=== PATIENT | male | born 1945 | race Caucasian/White ===

== ENCOUNTER 2017-11-19 15:12 | Outpatient (CLI) | payer MEDICARE ==
--- NOTE | 2017-11-19 15:48 | RAD ---
TWO VIEWS CHEST: Date: 11-19-17 Comparison: 04-25-17 History: Dyspnea. FINDINGS: There is atherosclerotic calcification of the aortic arch. There is complete opacification of the lef t hemithorax with left hemithorax volume loss, stable. Right lung is hyperinflated with mild increase d interstitial density. Right lung is grossly unremarkable otherwise. There is multilevel degenerativ e change within the thoracic spine. IMPRESSION: Stable appearance of the chest as detailed above. POS: FLORIAN
== END 2017-11-19 15:13 | disposition home or self-care (01) ==
LOC: RAD 15:12
PROVIDERS: ATTEND Thoracic Surgery (Cardiothoracic Vascular Surgery)
DX: C34.10 Malignant neoplasm of upper lobe, unspecified bronchus or lung (principal)
CPT/HCPCS: 71046

== ENCOUNTER 2017-11-22 09:39 | Outpatient (CLI) | payer MEDICARE ==
[2017-11-22 10:56] LABS: Calc. Creatinine Clearance 0 mL/min (70-130); Estimated GFR-MDRD Greater than 90
--- NOTE | 2017-11-22 12:32 | CT ---
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 COMPARISON: CT abdomen and pelvis 2013. FINDINGS: There is a large left subpleural effusion. There is mild emphysematous change in the right lung base . There is leftward mediastinal shift with volume loss. The spleen is unremarkable as well as the pancreas. No intrahepatic or extrahepatic biliary dilatati on. There are multifocal areas of cortical scarring both kidneys. There is a hypodensity inferior pole l eft kidney similar to the comparison examination. There is also interpolar hypodensity slightly smal ler than the comparison examination left kidney. No dilated loops of large or small bowel. No free intraperitoneal gas or fluid. BONES: There is extensive degenerative disease of the lumbar spine. Mild narrowing of the pubic symphysis. Low-grade degenerative disease medial compartments of both knees. MUSCLES: There is near-complete occlusion of the superior mesenteric artery distal to the ostia approximately 2 cm from a length of approximately a centimeter due to calcific plaque. Distal branches appear to b e patent. Low-grade narrowing of the proximal celiac artery. The inferior mesenteric artery is patent. The ostia of both renal arteries are patent. No aneurysmal dilatation of the aorta. RIGHT SIDE: There is extensive atherosclerotic plaque of the bilateral common iliac arteries. There is a focal 5 0% stenosis proximal right common iliac artery near the origin. Extensive atherosclerotic plaque in internal iliac artery. Multifocal less than 50% stenosis of the external iliac artery on the right. There is a focal complete occlusion of the right common femoral artery for a length of 2-3 mm series 3 image 144 as well as complete occlusion of the right femoral artery down to the level of the popli teal artery with reconstitution from collaterals for the deep femoral artery. Multifocal greater than 30% stenosis of the popliteal artery. The proximal and mid trifurcation are patent with flow extending to the foot. LEFT SIDE: There is complete occlusion of proximal left internal iliac artery for a length of 3 cm with some dis veronica reconstitution. The left external iliac artery has extensive atherosclerotic plaque. The left c ommon femoral artery is patent as well as the deep femoral and femoral arteries. The femoral artery is multifocal, greater than 50% areas of narrowing throughout its length. Popliteal artery also has multifocal areas of narrowing. The trifurcation is patent to the foot. IMPRESSION: 1. Focal occlusion right common femoral artery and right femoral artery with reconstitution from the deep femoral artery through the trifurcation which has flow. 2. Multifocal areas of greater than 50% narrowing due to soft and calcific plaque throughout the [place] ac arteries and left femoral artery and bilateral popliteal arteries. 3. Focal complete occlusion of proximal left internal iliac artery due to calcific plaque. 4. Renal hypodensities are similar to the comparison examination and suggests benignity. 5. Similar appearance to large left layering pleural effusion and volume loss. POS: FLORIAN
[2017-11-22] MEDS ORDERED: Iopamidol 370 76% 100 ML VIAL ONE (13:16)
== END 2017-11-22 09:40 | disposition home or self-care (01) ==
LOC: CT 09:39
PROVIDERS: ATTEND Thoracic Surgery (Cardiothoracic Vascular Surgery)
DX: I70.223 Atherosclerosis of native arteries of extremities with rest pain, bilateral legs (principal); I70.8 Atherosclerosis of other arteries; N28.89 Other specified disorders of kidney and ureter
CPT/HCPCS: 36415; 75635; 82565

== ENCOUNTER 2017-12-11 09:00 | Outpatient (CLI) | payer MEDICARE ==
[2017-12-11 12:53] LABS: Anion Gap 10 mmol/L (10-20); BUN (Urea Nitrogen) 10 mg/dL (8.4-25.7); Calc. Creatinine Clearance 0 mL/min (70-130); Calcium 9.9 mg/dL (7.8-10.44); Carbon Dioxide 31 mmol/L (23-31); Chloride 97 mmol/L (98-107); Estimated GFR-MDRD Greater than 90; Glucose 114 mg/dL (83-110); Potassium 3.7 mmol/L (3.5-5.1); Sodium 134 mmol/L (136-145)
--- NOTE | 2017-12-11 15:47 | EKG ---
Test Reason : Blood Pressure : / mmHG Vent. Rate : 087 BPM Atrial Rate : 087 BPM P-R Int : 178 ms QRS Dur : 084 ms QT Int : 344 ms P-R-T Axes : 087 065 090 degrees QTc Int : 413 ms Normal sinus rhythm Anteroseptal infarct (cited on or before 16-JUN-2015) Abnormal ECG Confirmed by ARTURO LYNN ([id number]) on 12/11/2017 3:47:12 PM Referred By: CINTHIA Confirmed By:ARTURO LYNN
[2017-12-11 18:21] LABS: Hemoglobin 12.2 g/dL (14.0-18.0); Mean Corpuscular HGB CONC 32.7 g/dL (32.0-36.0); Mean Corpuscular Hemoglobin 31.8 pg (27.0-31.0); Mean Corpuscular Volume 97.5 fl (80.0-94.0); Mean Platelet Volume 6.6 fL (7.4-10.4); Platelet Count 337 thou/uL (130-400); RBC Distribution Width 12.5 % (11.5-14.5); Red Blood Cell (RBC) Count 3.83 mill/uL (4.70-6.10); White Blood Cell (WBC) Count 7.6 thou/uL (4.8-10.8)
== END 2017-12-11 09:01 | disposition home or self-care (01) ==
LOC: LABBT 09:00
PROVIDERS: ATTEND Thoracic Surgery (Cardiothoracic Vascular Surgery)
DX: Z01.818 Encounter for other preprocedural examination (principal); I73.9 Peripheral vascular disease, unspecified
CPT/HCPCS: 80048; 85027; 86850; 86900; 86901; 93005; 93010

== ENCOUNTER 2017-12-11 11:15 | Inpatient (IN) | payer MEDICARE ==
[2017-12-12] MEDS ORDERED: Protamine Sulfate 50 MG/5 ML VIAL ONE (06:20)
[2017-12-12] MEDS ORDERED: Heparin 5,000 UNITS/ML VIAL ONE (06:20)
[2017-12-12] MEDS ORDERED: CEFAZOLIN/Water 2 GM/20 ML SYRINGE ONE (07:10)
[2017-12-12] MEDS ORDERED: Fentanyl 100 MCG/2 ML VIAL ONE ×3 (07:26→11:59)
[2017-12-12] MEDS ORDERED: Heparin 10,000 UNITS/1 ML VIAL ONE (09:59)
[2017-12-12] MEDS ORDERED: HYDROmorphone 0.5 MG/0.5 ML SYRINGE ONE ×2 (10:11→10:56)
[2017-12-12] MEDS ORDERED: Metoprolol Tartrate 5 MG/5 ML VIAL ONE ×2 (10:55→17:01)
[2017-12-12] MEDS ORDERED: hydrALAZINE 20 MG/ML VIAL ONE (11:02)
[2017-12-12] MEDS ORDERED: Meperidine HCl/PF 25 MG/ML VIAL ONE (11:07)
[2017-12-12] MEDS ORDERED: Dexamethasone 4 mg/ml Vial ONE (11:10)
[2017-12-12] MEDS ORDERED: Ondansetron HCl/PF 4 MG/2 ML Vial ONE ×2 (11:10→17:01)
[2017-12-12] MEDS ORDERED: HYDROmorphone 2 MG/ML VIAL SLOW IVP PRN (11:12)
[2017-12-12] MEDS ORDERED: Ondansetron HCl/PF 4 MG/2 ML Vial IVP PRN ×2 (11:12→12:47)
[2017-12-12] MEDS ORDERED: Promethazine HCl 25 MG/ML VIAL IM PRN (11:12)
[2017-12-12] MEDS ORDERED: Promethazine HCl 25 MG/ML VIAL SLOW IVP PRN (11:12)
--- NOTE | 2017-12-12 11:35 | OP ---
PREOPERATIVE DIAGNOSES: Peripheral arterial disease, bilateral rest pain right foot. PROCEDURE: Aortogram bilateral runoff with bilateral femoral arterial catheters stenting in the left common iliac with a 7 x 57 Express stent and stenting of the left external iliac artery with a 7 x 8 0 Innova self-expanding stent posted with a 7 mm balloon and right common femoral endarterectomy incl uding 2 profunda branches. SURGEON: Ruben Clay M.D. ANESTHESIA: General. ESTIMATED BLOOD LOSS: 150 mL. CONTRAST: 50.5 mL FLUOROSCOPY: 13.22 minutes. PROCEDURE IN DETAIL: After adequate anesthesia had been obtained, the patient was prepped and draped . Left common femoral artery was punctured by ultrasound guidance and under fluoroscopy, a Ganjison w kia was gently advanced into the aorta and a 5 Monegasque dilator and sheath were placed. Following this , an incision was made in the right groin, exposing the common femoral artery from just above the cir cumflex femoral vessels to the takeoff of the superficial femoral. The right common femoral artery w as then punctured with a needle and a 5 Monegasque dilator and catheter were placed. Retrograde angiogra phy was obtained on both sides with the right side demonstrating some moderate stenosis of less than 50%. On the left side, the common iliac artery was diffusely and subtotally occluded and there was a t least two discrete 75% stenosis in the external iliac artery. Following this, the Bentson guidewir e was exchanged for a long Wholey wire and then a 5 x 40 balloon was used to inflate the common and e xternal iliac artery sequentially. Following this, the 5 x 57 Express stent was deployed in the comm on iliac artery on the left about 1 cm proximal to the bifurcation of the aorta. Following this, the 7 x 80 Innova stent was deployed and posted with a 7 mm balloon, which was then used to dilate the c ommon iliac stent. Completion angiography showed satisfactory result. The common iliac artery could have been sized to a bigger stent; however, was concerned with its heavy calcification that we may f racture this vessel. Following this, attention was turned to the right groin where clamp was applied to the external iliac artery and both profunda branches, long arteriotomy performed. The vessel was occluded as anticipated with a plug extending into the orifice of the profunda branch. These were a ll cleaned and removed, following which a bovine patch was used to close the arteriotomy, irrigating. Following copious irrigation, the suture line was completed and the vessels back flushed and flow r estored. Protamine was given to reverse the heparin. A ProGlide was then used to deploy in the left groin; however, this did not obtain hemostasis and pressure was then held for 20 minutes and this co ntrolled bleeding from the left groin. The right groin was then thoroughly irrigated and closed in tariq conrad and the patient is to be taken to the recovery room in guarded condition.
[2017-12-12] MEDS ORDERED: Fentanyl 100 MCG/2 ML VIAL SLOW IVP PRN ×2 (12:47)
[2017-12-12] MEDS ORDERED: HYDROcodone/Acetaminophen 5/325 mg Tablet PO PRN (12:47)
[2017-12-12] MEDS ORDERED: Acetaminophen 325 MG TAB PO PRN (12:47)
[2017-12-12] MEDS ORDERED: hydrALAZINE 20 MG/ML VIAL SLOW IVP PRN (12:47)
[2017-12-12] MEDS ORDERED: Polyethylene Glycol 3350 17 GM Packet PO PRN (12:47)
[2017-12-12] MEDS ORDERED: Clopidogrel Bisulfate 75 MG TAB PO SCH (13:00)
[2017-12-12] MEDS: HYDROcodone/Acetaminophen 5/325 mg Tablet PO PRN (15:22)
[2017-12-12 15:55] VITALS: BMI 21.2
[2017-12-12] MEDS ORDERED: Lidocaine 1% PF 5 ML VIAL ONE (17:01)
[2017-12-12] MEDS ORDERED: Heparin 10,000 UNITS/ 10 ML VIAL ONE (17:01)
[2017-12-12] MEDS ORDERED: Propofol 200 MG/20 ML VIAL ONE (17:01)
[2017-12-12] MEDS ORDERED: Dexamethasone 20 MG/5 ML VIAL ONE (17:01)
[2017-12-12] MEDS: CEFAZOLIN/Water 2 GM/20 ML SYRINGE SLOW IVP SCH ×2 (17:48→21:01)
[2017-12-12] MEDS ORDERED: Sodium Chloride 0.9% 1,000 ML IV SCH (18:00)
[2017-12-13] MEDS: CEFAZOLIN/Water 2 GM/20 ML SYRINGE SLOW IVP SCH (06:35)
[2017-12-13] MEDS: Simvastatin 5 MG TAB PO SCH (09:05)
[2017-12-13] MEDS: Lisinopril 10 MG TAB PO SCH (09:06)
[2017-12-13] MEDS: Clopidogrel Bisulfate 75 MG TAB PO SCH (09:06)
[2017-12-13] MEDS: HYDROcodone/Acetaminophen 5/325 mg Tablet PO PRN (21:07)
[2017-12-13] MEDS: Metoprolol Tartrate 25 MG TAB PO SCH (21:08)
[2017-12-14 08:27] VITALS: BP 168/78; TEMP 97.8
[2017-12-14] MEDS: Metoprolol Tartrate 25 MG TAB PO SCH (08:51)
[2017-12-14] MEDS: Clopidogrel Bisulfate 75 MG TAB PO SCH (08:52)
[2017-12-14] MEDS: Lisinopril 10 MG TAB PO SCH (08:53)
[2017-12-14] MEDS: Simvastatin 5 MG TAB PO SCH (08:53)
== END 2017-12-14 10:40 | disposition home or self-care (01) | DRG 253 ==
LOC: SURG A 12-12 05:35 → CCU 12-12 14:21 → SURG A 12-13 17:47
PROVIDERS: ADMIT Thoracic Surgery (Cardiothoracic Vascular Surgery); ATTEND Thoracic Surgery (Cardiothoracic Vascular Surgery)
PROC: 04CK0Z6 (ICD-10-PCS; principal; 2017-12-12)
PROC: 04UK0KZ Supplement Right Femoral Artery with Nonautologous Tissue Substitute, Open Approach (ICD-10-PCS; 2017-12-12)
PROC: 047D3DZ Dilation of Left Common Iliac Artery with Intraluminal Device, Percutaneous Approach (ICD-10-PCS; 2017-12-12)
PROC: 047J3DZ Dilation of Left External Iliac Artery with Intraluminal Device, Percutaneous Approach (ICD-10-PCS; 2017-12-12)
PROC: B41DYZZ Fluoroscopy of Aorta and Bilateral Lower Extremity Arteries using Other Contrast (ICD-10-PCS; 2017-12-12)
DX: I70.223 Atherosclerosis of native arteries of extremities with rest pain, bilateral legs (principal); I70.92 Chronic total occlusion of artery of the extremities; E78.00 Pure hypercholesterolemia, unspecified; Z85.118 Personal history of other malignant neoplasm of bronchus and lung; Z85.46 Personal history of malignant neoplasm of prostate
CPT/HCPCS: 76001; 80048; 85027; 86850; 86900; 86901; 93005; 93010; C1725; C1760; C1876; G8978-GP-CL; G8979-GP-CJ; J0360; J1100; J1170; J1642; J1644; J2001; J2175; J2405; J2704; J2720; J3010; J7050

== ENCOUNTER 2018-04-10 12:36 | Outpatient (CLI) | payer MEDICARE ==
--- NOTE | 2018-04-10 13:01 | RAD ---
PA AND LATERAL VIEWS CHEST: HISTORY: Malignant neoplasm of upper lobe. FINDINGS: Comparison is made with the exam of 11/19/17. There is complete opacification of the left hemithorax with mediastinal shift to the left. The hyperexpanded right lung is clear. Atherosclerotic calcific ation of the aortic arch is redemonstrated. There are degenerative changes in the spine. IMPRESSION: Stable exam. POS: FLORIAN
== END 2018-04-10 12:37 | disposition home or self-care (01) ==
LOC: RAD 12:36
PROVIDERS: ATTEND Thoracic Surgery (Cardiothoracic Vascular Surgery)
DX: C34.10 Malignant neoplasm of upper lobe, unspecified bronchus or lung (principal)
CPT/HCPCS: 36415; 71046; 85027

== ENCOUNTER 2018-12-18 13:06 | Outpatient (CLI) | payer MEDICARE ==
--- NOTE | 2018-12-18 13:51 | RAD ---
CHEST 2 VIEWS: INDICATION: History of malignant neoplasm. COMPARISON: Prior exam dated 04/10/2018. FINDINGS: There is complete opacification of left hemithorax. There is hyperinflation of the right lung. The right lung remains clear. No acute osseous abnormality is evident. Vascular calcification is again seen involving the aortic arch. IMPRESSION: Stable complete opacification of the left hemithorax with hyperexpansion of the right. POS: FLORIAN
== END 2018-12-18 13:07 | disposition home or self-care (01) ==
LOC: RAD 13:06
PROVIDERS: ATTEND Thoracic Surgery (Cardiothoracic Vascular Surgery)
DX: C34.12 Malignant neoplasm of upper lobe, left bronchus or lung (principal); R91.8 Other nonspecific abnormal finding of lung field
CPT/HCPCS: 71046

== ENCOUNTER 2019-09-08 13:04 | Outpatient (CLI) | payer MEDICARE ==
--- NOTE | 2019-09-08 13:45 | RAD ---
RADIOGRAPH CHEST 2 VIEW: DATE: 09/08/2019 TIME: 1:13 PM HISTORY: 73-year-old male with malignant neoplasm of left lung or bronchus. COMPARISON: 12/18/2018 FINDINGS: Total opacification of left hemithoracic cavity. Midline shift of trachea, mediastinum, and heart far to the left. Right lung remains clear. No right pleural effusion or pneumothorax. No interval change overall. IMPRESSION: 1) status post total left pneumonectomy. 2) no interval change.
== END 2019-09-08 13:05 | disposition home or self-care (01) ==
LOC: RAD 13:04
PROVIDERS: ATTEND Thoracic Surgery (Cardiothoracic Vascular Surgery)
DX: C34.12 Malignant neoplasm of upper lobe, left bronchus or lung (principal); Z90.2 Acquired absence of lung [part of]
CPT/HCPCS: 71046

== ENCOUNTER 2020-03-08 14:15 | Outpatient (CLI) | payer MEDICARE ==
--- NOTE | 2020-03-08 14:41 | RAD ---
Chest 2 views HISTORY: Lung cancer. COMPARISON: 09/08/2019. FINDINGS: Obscuration of the left side of the leftward shift of mediastinum is again demonstrated. Ri ght lung remains hyperinflated. No lobar consolidation or pneumothorax. Calcification overlies the aorta. There are degenerative changes of the thoracic spine. IMPRESSION : Status post left pneumonectomy. Stable exam. Atherosclerosis.
== END 2020-03-08 14:16 | disposition home or self-care (01) ==
LOC: RAD 14:15
PROVIDERS: ATTEND Thoracic Surgery (Cardiothoracic Vascular Surgery)
DX: C34.10 Malignant neoplasm of upper lobe, unspecified bronchus or lung (principal); I70.0 Atherosclerosis of aorta; Z90.2 Acquired absence of lung [part of]
CPT/HCPCS: 71046

== ENCOUNTER 2020-09-04 13:16 | Emergency (ER) | payer MEDICARE ==
[2020-09-04 13:53] LABS: #Lymphocytes 1.3 thou/uL (1.20-3.40); #Monocytes 0.9 thou/uL (0.11-0.59); #Neutrophils 11.5 thou/uL (1.40-6.50); %Basophils 0.2 % (0.0-1.0); %Eosinophils 0.1 % (0.0-10.0); %Lymphocytes 9.5 % (21.0-51.0); %Monocytes 6.3 % (0.0-10.0); %Neutrophils 83.8 % (42.0-75.0); Hemoglobin 11.2 g/dL (14.0-18.0); Mean Corpuscular HGB CONC 34.2 g/dL (32.0-36.0); Mean Corpuscular Hemoglobin 31.1 pg (27.0-31.0); Mean Corpuscular Volume 91.1 fL (78.0-98.0); Mean Platelet Volume 5.8 fL (7.4-10.4); Platelet Count 382 thou/uL (130-400); Red Blood Cell (RBC) Count 3.61 mill/uL (4.70-6.10); White Blood Cell (WBC) Count 13.7 thou/uL (4.8-10.8)
[2020-09-04 14:07] LABS: Sodium 131 mmol/L (136-145)
[2020-09-04 14:08] LABS: ALT (SGPT) 8 U/L (8-55); AST (SGOT) 13 U/L (5-34); Albumin 3.9 g/dL (3.4-4.8); Alkaline Phosphatase 93 U/L (40-110); Anion Gap 16 mmol/L (10-20); BUN (Urea Nitrogen) 11 mg/dL (8.4-25.7); Bilirubin, Total 0.5 mg/dL (0.2-1.2); Calc. Creatinine Clearance 0 mL/min (70-130); Calcium 8.9 mg/dL (7.8-10.44); Carbon Dioxide 26 mmol/L (23-31); Chloride 94 mmol/L (98-107); Globulin 2.5 g/dL (2.4-3.5); Glucose 97 mg/dL (83-110); Lipase 11 U/L (8-78); Potassium 4.5 mmol/L (3.5-5.1); Protein, Total 6.4 g/dL (5.8-8.1)
--- NOTE | 2020-09-04 15:05 | CT ---
EXAM: CT ABDOMEN AND PELVIS HISTORY: Nausea. Vomiting. History of gastric bypass. COMPARISON: 11/22/2017, 06/16/2015 Procedure: Multiple contiguous axial images were obtained and a CT of the abdomen and pelvis with IV contrast. C oronal reformats were performed. FINDINGS: Lower Chest: Compensatory hyperinflation of the right lung. There is loculated fluid in the left pleu ral space with possible changes from pleurodesis. Diminished lung volumes in the left hemithorax with resultant leftward deviation of the heart. Vessels: Atherosclerosis of a nonaneurysmal aorta. Heart: Normal heart size Abdomen: Portal vein:Patent Gallbladder: Contracted, likely due to a nonfasting state Liver: within normal limits. Pancreas: within normal limits. Spleen: within normal limits. Adrenals: within normal limits. Kidneys: Symmetric enhancement. No obstructive uropathy. Peritoneum: No free air. There is small amount of fluid in the left and right paracolic gutter. There is a small amount of perihepatic mild stranding of the abdominal mesentery. Bowel: Gastric mucosa has a normal appearance. There are prominent contrast filled loops of proximal small bowel. Additionally, there are prominent fluid-filled loops of the distal small bowel. Ileocecal junction appears to be unremarkable. There appears be right hemicolectomy. Mesentery and Retroperitoneum: No enlarged mesenteric or retroperitoneal lymph nodes. Abdominal Wall: within normal limits. Pelvis: Reproductive Organs: Reproductive organs are unremarkable. Pelvis: No mass, lymphadenopathy or free air. There is free fluid in the pelvis. Bladder: within normal limits. Bones: within normal limits. IMPRESSION: 1. Prominent proximal and distal small bowel loops with evidence of free fluid in the pelvis. Correla te for possible developing ileus versus bowel obstruction. Consider general surgical consultation. 2. Chronic changes in the visualized lower chest. Transcribed Date/Time: 09/04/2020 3:14 PM
[2020-09-04 15:31] LABS: Bacteria/HPF None Seen HPF (None Seen); Bilirubin Negative (Negative); Blood, Urine 2+ (Negative); Clarity Clear (Clear); Glucose, Urine (Dipstick) Normal (Negative); Ketone, Urine Negative (Negative); Leukocyte Negative Leu/uL (Negative); Nitrite Negative (Negative); Protein, Urine (Dipstick) Negative (Neg-Trace); Specific Gravity, Urine 1.004 (1.002-1.036); Squamous Epithelial 0-3 HPF (0-3); Urobilinogen Normal mg/dL (Less than 2); WBC/HPF None Seen HPF (0-3)
[2020-09-04] MEDS ORDERED: Iopamidol-370 76% 500 ML 1 ML ONE (16:05)
[2020-09-04] MEDS ORDERED: Iopamidol 370 76% 50 ML VIAL FS ONE (16:05)
--- NOTE | 2020-09-10 17:08 | EKG ---
Test Reason : Blood Pressure : / mmHG Vent. Rate : 079 BPM Atrial Rate : 079 BPM P-R Int : 170 ms QRS Dur : 082 ms QT Int : 384 ms P-R-T Axes : 028 000 073 degrees QTc Int : 440 ms Normal sinus rhythm Septal infarct , age undetermined Abnormal ECG Confirmed by MAULIK BARRAZA DO ([id number]), supervising film or videotape editor CARRILLO HUGHES ([id number]) on 09/10/2020 5:07:44 PM Referred By: Confirmed By:MAULIK BARRAZA DO
== END 2020-09-04 14:48 | disposition home or self-care (01) ==
LOC: ERS 13:16
DX: R10.9 Unspecified abdominal pain (principal); R11.2 Nausea with vomiting, unspecified; E78.5 Hyperlipidemia, unspecified; E78.00 Pure hypercholesterolemia, unspecified; I10 Essential (primary) hypertension; F32.9 Major depressive disorder, single episode, unspecified; Z87.891 Personal history of nicotine dependence; Z79.82 Long term (current) use of aspirin; Z79.899 Other long term (current) drug therapy
CPT/HCPCS: 36415; 74177; 80053; 81003; 81015; 83690; 84484; 85025; 93005; 94760; Q9967

== ENCOUNTER 2021-02-01 11:54 | Outpatient (CLI) | payer MEDICARE ==
[2021-02-02 04:12] LABS: SARS-CoV-2 PCR by NAA Not Detected (NotDetected)
== END 2021-02-01 11:55 | disposition home or self-care (01) ==
LOC: LABBT 11:54
PROVIDERS: ATTEND Internal Medicine
DX: Z01.812 Encounter for preprocedural laboratory examination (principal); C32.9 Malignant neoplasm of larynx, unspecified; R13.10 Dysphagia, unspecified; Z20.822 Contact with and (suspected) exposure to COVID-19
CPT/HCPCS: U0003; U0005; 87635

== ENCOUNTER 2021-02-06 05:56 | Observation (INO) | payer MEDICARE ==
[2021-02-06] MEDS ORDERED: PROPOFOL 200 MG/20 ML VIAL ONE (08:23)
[2021-02-06] MEDS ORDERED: Fentanyl 100 MCG/2 ML VIAL ONE (09:32)
[2021-02-06] MEDS ORDERED: Bisacodyl 10 MG SUPP PR PRN (11:23)
[2021-02-06] MEDS ORDERED: Senokot S 8.6-50 MG TAB PO PRN (11:23)
[2021-02-06] MEDS ORDERED: Acetaminophen 325 MG TAB PO PRN (11:23)
[2021-02-06] MEDS ORDERED: Calcium Carbonate 500 MG ChewTAB PO PRN (11:23)
[2021-02-06] MEDS ORDERED: HYDROcodone/Acetaminophen 5/325 mg Tablet PO PRN (11:23)
[2021-02-06] MEDS ORDERED: Acetaminophen 650 MG Suppository PR PRN (11:23)
[2021-02-06] MEDS ORDERED: Ondansetron PF 4 MG/2 ML Vial IVP PRN (11:23)
[2021-02-06] MEDS ORDERED: Guaifenesin DM 100-10/5 ML UDCUP PO PRN (11:23)
[2021-02-06] MEDS ORDERED: Non-Formulary Item 1 EACH (Acetaminophen [Acetaminophen Oral Solution] 160 MG/5 ML Bottle PO PRN (11:25)
[2021-02-06] MEDS ORDERED: Polyethylene Glycol 3350 17 GM Packet PO PRN (11:25)
[2021-02-06] MEDS ORDERED: Sodium Chloride 0.9% 1,000 ML IV SCH (11:30)
[2021-02-06] MEDS ORDERED: Promethazine HCl 25 MG/ML VIAL SLOW IVP PRN (12:02)
[2021-02-06] MEDS ORDERED: Ondansetron HCl/PF 4 MG/2 ML Vial IVP PRN (12:02)
[2021-02-06] MEDS ORDERED: Promethazine HCl 25 MG/ML VIAL IM PRN (12:02)
[2021-02-06 12:39] LABS: #Lymphocytes 1.1 thou/uL (1.20-3.40); #Monocytes 0.6 thou/uL (0.11-0.59); #Neutrophils 10.1 thou/uL (1.40-6.50); %Basophils 0.2 % (0.0-1.0); %Lymphocytes 9.1 % (21.0-51.0); %Monocytes 4.9 % (0.0-10.0); %Neutrophils 85.7 % (42.0-75.0); Hemoglobin 11.8 g/dL (14.0-18.0); Mean Corpuscular HGB CONC 32.5 g/dL (32.0-36.0); Mean Corpuscular Hemoglobin 28.8 pg (27.0-31.0); Mean Corpuscular Volume 88.5 fL (78.0-98.0); Mean Platelet Volume 5.4 fL (7.4-10.4); Platelet Count 381 thou/uL (130-400); RBC Distribution Width 13.1 % (11.5-14.5); Red Blood Cell (RBC) Count 4.11 mill/uL (4.70-6.10); White Blood Cell (WBC) Count 11.8 thou/uL (4.8-10.8)
[2021-02-06 13:02] LABS: ALT (SGPT) 17 U/L (8-55); AST (SGOT) 27 U/L (5-34); Albumin 3.9 g/dL (3.4-4.8); Alkaline Phosphatase 100 U/L (40-110); Anion Gap 12 mmol/L (10-20); BUN (Urea Nitrogen) 12 mg/dL (8.4-25.7); Bilirubin, Total 0.2 mg/dL (0.2-1.2); Calc. Creatinine Clearance 68 mL/min (70-130); Calcium 9.2 mg/dL (7.8-10.44); Carbon Dioxide 28 mmol/L (23-31); Chloride 96 mmol/L (98-107); Glucose 113 mg/dL (83-110); Potassium 3.7 mmol/L (3.5-5.1); Protein, Total 6.9 g/dL (5.8-8.1); Sodium 132 mmol/L (136-145)
[2021-02-06 18:30] VITALS: BMI 21.2
[2021-02-06] MEDS: Metoprolol Tartrate 25 MG TAB PO SCH (20:46)
[2021-02-06] MEDS ORDERED: Mirtazapine 15 MG TAB PO SCH (21:00)
[2021-02-06] MEDS ORDERED: Docusate 100 MG CAP PO SCH (21:00)
[2021-02-06] MEDS: Docusate Sodium 100 MG/10 ML UDCUP PO SCH (22:16)
[2021-02-07] MEDS ORDERED: hydrALAZINE 20 MG/ML VIAL SLOW IVP PRN (05:29)
[2021-02-07] MEDS ORDERED: Lisinopril 10 MG TAB PO SCH ×2 (05:30→09:00)
[2021-02-07 07:20] LABS: #Basophils 0.1 thou/uL (0.0-0.2); #Monocytes 0.7 thou/uL (0.11-0.59); #Neutrophils 7.9 thou/uL (1.40-6.50); %Basophils 0.6 % (0.0-1.0); %Eosinophils 0.3 % (0.0-10.0); %Lymphocytes 10.4 % (21.0-51.0); %Monocytes 6.7 % (0.0-10.0); Hemoglobin 9.4 g/dL (14.0-18.0); Mean Corpuscular HGB CONC 33.5 g/dL (32.0-36.0); Mean Corpuscular Hemoglobin 29.7 pg (27.0-31.0); Mean Corpuscular Volume 88.8 fL (78.0-98.0); Mean Platelet Volume 5.6 fL (7.4-10.4); Platelet Count 322 thou/uL (130-400); RBC Distribution Width 13.1 % (11.5-14.5); Red Blood Cell (RBC) Count 3.17 mill/uL (4.70-6.10); White Blood Cell (WBC) Count 9.6 thou/uL (4.8-10.8)
[2021-02-07 07:37] LABS: Anion Gap 12 mmol/L (10-20); BUN (Urea Nitrogen) 14 mg/dL (8.4-25.7); Calc. Creatinine Clearance 88 mL/min (70-130); Carbon Dioxide 26 mmol/L (23-31); Chloride 98 mmol/L (98-107); Glucose 105 mg/dL (83-110); Potassium 3.5 mmol/L (3.5-5.1); Sodium 132 mmol/L (136-145)
[2021-02-07] MEDS ORDERED: Ferrous Sulfate 325 MG TAB PO SCH (09:00)
[2021-02-07] MEDS ORDERED: Pantoprazole 40 MG GRANULES PACKET PO SCH (09:00)
[2021-02-07] MEDS ORDERED: Aspirin Chewable 81 MG TAB PO SCH (09:00)
[2021-02-07] MEDS ORDERED: Enoxaparin Sodium 40 MG/0.4 ML SYRINGE SC SCH (09:00)
[2021-02-07] MEDS: Metoprolol Tartrate 25 MG TAB PO SCH (09:05)
[2021-02-07] MEDS: Docusate Sodium 100 MG/10 ML UDCUP PO SCH (09:06)
[2021-02-07 16:56] VITALS: BP 160/66; TEMP 98.2
[2021-02-08] MEDS ORDERED: Clopidogrel Bisulfate 75 MG TAB PO SCH (09:00)
== END 2021-02-07 17:27 | disposition home health service (06) ==
LOC: SDC 05:56 → T4-A 08:47 → EDSTATUS 12:15
PROVIDERS: ADMIT Internal Medicine; ATTEND Internal Medicine
PROC: 0DH63UZ Insertion of Feeding Device into Stomach, Percutaneous Approach (ICD-10-PCS; principal; 2021-02-06)
DX: C32.1 Malignant neoplasm of supraglottis (principal); C13.1 Malignant neoplasm of aryepiglottic fold, hypopharyngeal aspect; R13.10 Dysphagia, unspecified; K21.9 Gastro-esophageal reflux disease without esophagitis; I10 Essential (primary) hypertension; E78.00 Pure hypercholesterolemia, unspecified; I25.10 Atherosclerotic heart disease of native coronary artery without angina pectoris; D63.0 Anemia in neoplastic disease; G25.81 Restless legs syndrome; E78.5 Hyperlipidemia, unspecified; Z85.118 Personal history of other malignant neoplasm of bronchus and lung; Z85.46 Personal history of malignant neoplasm of prostate; Z87.891 Personal history of nicotine dependence; Z79.02 Long term (current) use of antithrombotics/antiplatelets; Z79.82 Long term (current) use of aspirin; Z79.899 Other long term (current) drug therapy; Z90.2 Acquired absence of lung [part of]; Z90.49 Acquired absence of other specified parts of digestive tract; Z95.5 Presence of coronary angioplasty implant and graft
CPT/HCPCS: 36415; 80048; 80053; 85025; 96372; G0378; J0690; J1650; J2704; J3010

== ENCOUNTER 2021-02-21 11:04 | Outpatient (CLI) | payer MEDICARE | END 2021-02-21 11:05 | disposition home or self-care (01) | LOC: PET 11:04 | PROVIDERS: ATTEND Radiology Radiation Oncology | DX: C32.1 Malignant neoplasm of supraglottis (principal) | CPT/HCPCS: 78815; A9552 ==

== ENCOUNTER 2021-03-07 10:27 | Day surgery (SDC) | payer MEDICARE ==
[2021-03-07] MEDS ORDERED: Sodium Chloride 0.9% 20 ML ONE (11:04)
[2021-03-07] MEDS ORDERED: diphenhydrAMINE 25 MG CAP PO PRN (12:02)
[2021-03-07] MEDS ORDERED: Acetaminophen 500 MG TAB PO PRN (12:02)
[2021-03-07 17:23] VITALS: BP 192/77; TEMP 98.2
== END 2021-03-07 17:24 | disposition home or self-care (01) ==
LOC: ONC/OP 10:27
PROVIDERS: ATTEND Internal Medicine Hematology & Oncology
PROC: 30233N1 Transfusion of Nonautologous Red Blood Cells into Peripheral Vein, Percutaneous Approach (ICD-10-PCS; principal; 2021-03-07)
DX: D64.9 Anemia, unspecified (principal); D69.6 Thrombocytopenia, unspecified
CPT/HCPCS: 36415; 36430; 77386; 80053; 82248; 83615; 83735; 84100; 84550; 86850; 86900; 86901; P9016; Q0163

== ENCOUNTER 2021-07-11 09:41 | Outpatient (CLI) | payer MEDICARE | END 2021-07-11 09:42 | disposition home or self-care (01) | LOC: PET 09:41 | PROVIDERS: ATTEND Radiology Radiation Oncology | DX: C32.1 Malignant neoplasm of supraglottis (principal) | CPT/HCPCS: 78815; A9552 ==

== ENCOUNTER 2021-10-17 11:34 | Outpatient (CLI) | payer MEDICARE ==
[~2021-10-17 11:34] MED LIST: Iopamidol 370 76% 100 ML VIAL ONE
== END 2021-10-17 11:35 | disposition home or self-care (01) ==
LOC: CT 11:34
PROVIDERS: ATTEND Thoracic Surgery (Cardiothoracic Vascular Surgery)
DX: I70.223 Atherosclerosis of native arteries of extremities with rest pain, bilateral legs (principal); I74.5 Embolism and thrombosis of iliac artery; Z98.890 Other specified postprocedural states
CPT/HCPCS: 75635; 82565; Q9967

== ENCOUNTER 2021-10-26 16:21 | Outpatient (CLI) | payer MEDICARE ==
[2021-10-26 18:33] LABS: Hemoglobin 10.7 g/dL (13.5-17.5); Mean Corpuscular HGB CONC 32.6 g/dL (32.0-36.0); Mean Corpuscular Hemoglobin 30.9 pg (27.0-33.0); Mean Corpuscular Volume 94.8 fl (81.2-95.1); Platelet Count 337 10x3/uL (150-450); RBC Distribution Width 13.3 % (11.5-14.5); Red Blood Cell (RBC) Count 3.46 10x6/uL (4.32-5.72); White Blood Cell (WBC) Count 7.2 10x3/uL (3.5-10.5)
[2021-10-26 18:49] LABS: Anion Gap 13 mmol/L (10-20); BUN (Urea Nitrogen) 26 mg/dL (8.4-25.7); Calc. Creatinine Clearance 0 mL/min (70-130); Calcium 9.4 mg/dL (7.8-10.44); Carbon Dioxide 30 mmol/L (23-31); Chloride 94 mmol/L (98-107); Glucose 95 mg/dL (83-110); Potassium 4.4 mmol/L (3.5-5.1); Sodium 133 mmol/L (136-145)
[2021-10-27 18:21] LABS: SARS-CoV-2 PCR by NAA Not Detected (NotDetected)
== END 2021-10-26 16:22 | disposition home or self-care (01) ==
LOC: LABBT 16:21
PROVIDERS: ATTEND Thoracic Surgery (Cardiothoracic Vascular Surgery)
DX: Z01.812 Encounter for preprocedural laboratory examination (principal); Z20.822 Contact with and (suspected) exposure to COVID-19
CPT/HCPCS: 80048; 85027; U0003; U0005

== ENCOUNTER 2021-10-26 16:30 | Inpatient (IN) | payer MEDICARE ==
[2021-10-26 10:01] VITALS: BMI 20.7
[2021-11-01] MEDS ORDERED: Protamine Sulfate 50 MG/5 ML VIAL ONE (06:26)
[2021-11-01] MEDS ORDERED: Heparin 5,000 UNITS/ML VIAL ONE (06:26)
[2021-11-01] MEDS ORDERED: Lidocaine 1% MPF 2 ML VIAL ONE (06:52)
[2021-11-01] MEDS ORDERED: Midazolam HCl 2 mg/2 ml Vial ONE (06:54)
[2021-11-01] MEDS ORDERED: Fentanyl 100 MCG/2 ML VIAL ONE ×5 (06:54→15:26)
[2021-11-01] MEDS ORDERED: Rocuronium Bromide 10 MG/ML (10ML VIAL) ONE (07:12)
[2021-11-01] MEDS ORDERED: Ondansetron PF 4 MG/2 ML Vial ONE (07:12)
[2021-11-01] MEDS ORDERED: Glycopyrrolate 0.2 MG/ML 5 ML SYRINGE ONE (07:12)
[2021-11-01] MEDS ORDERED: Dexamethasone 20 MG/5 ML VIAL ONE (07:12)
[2021-11-01] MEDS ORDERED: PROPOFOL 200 MG/20 ML VIAL ONE (07:12)
[2021-11-01] MEDS ORDERED: Lidocaine 1% PF 5 ML VIAL ONE (07:12)
[2021-11-01] MEDS ORDERED: Phenylephrine 10 MG/ML VIAL ONE (07:17)
[2021-11-01] MEDS ORDERED: ceFAZolin 2 GM/Dextrose 50 ML IVPB ONE ×2 (07:23→16:48)
[2021-11-01] MEDS ORDERED: Promethazine HCl 25 MG/ML VIAL IVPB PRN (11:30)
[2021-11-01] MEDS ORDERED: Promethazine HCl 25 MG/ML VIAL IM PRN (11:30)
[2021-11-01] MEDS ORDERED: Ondansetron HCl/PF 4 MG/2 ML Vial IVP PRN (11:30)
[2021-11-01] MEDS ORDERED: hydrALAZINE 20 MG/ML VIAL ONE (14:07)
[2021-11-01] MEDS ORDERED: Labetalol HCl 100 MG/20 ML VIAL ONE (14:28)
[2021-11-01] MEDS ORDERED: traMADol HCl 50 MG TAB PO PRN (17:25)
[2021-11-01] MEDS ORDERED: Sodium Chloride 0.9% 1,000 ML IV SCH (17:25)
[2021-11-01] MEDS ORDERED: Acetaminophen 325 MG TAB PO PRN (17:25)
[2021-11-01] MEDS ORDERED: Fentanyl 100 MCG/2 ML VIAL SLOW IVP PRN ×2 (17:25)
[2021-11-01] MEDS: ceFAZolin 2 GM/Dextrose 50 ML 2 GM in Premix Bag 1 BAG IVPB SCH (18:52)
[2021-11-01] MEDS: Metoprolol Tartrate 25 MG TAB PER TUBE SCH (21:32)
[2021-11-01] MEDS: Mirtazapine 15 MG TAB PER TUBE SCH (21:32)
[2021-11-02] MEDS: ceFAZolin 2 GM/Dextrose 50 ML 2 GM in Premix Bag 1 BAG IVPB SCH (01:14)
[2021-11-02] MEDS ORDERED: ceFAZolin 2 GM/Dextrose 50 ML 2 GM in Premix Bag 1 BAG IVPB SCH (10:00)
[2021-11-02] MEDS: Clopidogrel Bisulfate 75 MG TAB PO SCH (10:06)
[2021-11-02] MEDS: Aspirin Chewable 81 MG TAB PO SCH (10:07)
[2021-11-02] MEDS: Lisinopril 10 MG TAB PER TUBE SCH (10:08)
[2021-11-02] MEDS: Metoprolol Tartrate 25 MG TAB PER TUBE SCH ×2 (10:08→19:59)
[2021-11-02] MEDS: traMADol HCl 50 MG TAB PO PRN (16:09)
[2021-11-02] MEDS: Mirtazapine 15 MG TAB PER TUBE SCH (19:58)
[2021-11-02] MEDS: Enoxaparin Sodium 30 MG/0.3 ML SYRINGE SC SCH (19:58)
[2021-11-03] MEDS: Ondansetron PF 4 MG/2 ML Vial IVP PRN ×2 (01:23→12:43)
[2021-11-03] MEDS: traMADol HCl 50 MG TAB PO PRN (04:46)
[2021-11-03 07:55] LABS: #Lymphocytes 0.6 thou/uL (1.20-3.40); #Monocytes 0.9 thou/uL (0.11-0.59); #Neutrophils 6.5 thou/uL (1.40-6.50); %Eosinophils 0.5 % (0.0-10.0); %Lymphocytes 7.5 % (21.0-51.0); %Monocytes 10.8 % (0.0-10.0); %Neutrophils 81.3 % (42.0-75.0); Hemoglobin 8.2 g/dL (14.0-18.0); Mean Corpuscular HGB CONC 33.2 g/dL (32.0-36.0); Mean Corpuscular Hemoglobin 32.1 pg (27.0-31.0); Mean Corpuscular Volume 96.8 fL (78.0-98.0); Mean Platelet Volume 5.9 fL (7.4-10.4); Platelet Count 229 thou/uL (130-400); RBC Distribution Width 12.7 % (11.5-14.5); Red Blood Cell (RBC) Count 2.54 mill/uL (4.70-6.10); White Blood Cell (WBC) Count 7.9 thou/uL (4.8-10.8)
[2021-11-03 08:09] LABS: Anion Gap 11 mmol/L (10-20); BUN (Urea Nitrogen) 19 mg/dL (8.4-25.7); Calc. Creatinine Clearance 74 mL/min (70-130); Calcium 8.9 mg/dL (7.8-10.44); Carbon Dioxide 26 mmol/L (23-31); Chloride 100 mmol/L (98-107); Glucose 99 mg/dL (83-110); Potassium 4.3 mmol/L (3.5-5.1); Sodium 133 mmol/L (136-145)
[2021-11-03] MEDS: Aspirin Chewable 81 MG TAB PO SCH (09:08)
[2021-11-03] MEDS: Metoprolol Tartrate 25 MG TAB PER TUBE SCH ×2 (09:08→21:24)
[2021-11-03] MEDS: Lisinopril 10 MG TAB PER TUBE SCH (09:08)
[2021-11-03] MEDS: Clopidogrel Bisulfate 75 MG TAB PO SCH (09:08)
[2021-11-03] MEDS: Mirtazapine 15 MG TAB PER TUBE SCH (21:24)
[2021-11-03] MEDS: Enoxaparin Sodium 30 MG/0.3 ML SYRINGE SC SCH (21:24)
[2021-11-04] MEDS: traMADol HCl 50 MG TAB PO PRN (01:22)
[2021-11-04] MEDS: Clopidogrel Bisulfate 75 MG TAB PO SCH (09:28)
[2021-11-04] MEDS: Aspirin Chewable 81 MG TAB PO SCH (09:28)
[2021-11-04] MEDS: Metoprolol Tartrate 25 MG TAB PER TUBE SCH ×2 (09:28→20:05)
[2021-11-04] MEDS: Lisinopril 10 MG TAB PER TUBE SCH (09:28)
[2021-11-04] MEDS: Enoxaparin Sodium 30 MG/0.3 ML SYRINGE SC SCH (20:05)
[2021-11-04] MEDS: Mirtazapine 15 MG TAB PER TUBE SCH (20:06)
[2021-11-04] MEDS ORDERED: Polyethylene Glycol 3350 17 GM Packet PO SCH (21:00)
[2021-11-05] MEDS: traMADol HCl 50 MG TAB PO PRN ×2 (02:34→09:29)
[2021-11-05] MEDS ORDERED: Polyethylene Glycol 3350 17 GM Packet PO SCH (09:00)
[2021-11-05] MEDS: Clopidogrel Bisulfate 75 MG TAB PO SCH (09:23)
[2021-11-05] MEDS: Aspirin Chewable 81 MG TAB PO SCH (09:23)
[2021-11-05] MEDS: Lisinopril 10 MG TAB PER TUBE SCH (09:24)
[2021-11-05] MEDS: Metoprolol Tartrate 25 MG TAB PER TUBE SCH (09:24)
[2021-11-05 12:25] VITALS: BP 126/62; TEMP 98.5
== END 2021-11-05 13:17 | disposition home or self-care (01) | DRG 254 ==
LOC: SURG A 11-01 06:07 → EDSTATUS 11-01 16:30 → SURG A 11-01 17:22
PROVIDERS: ADMIT Thoracic Surgery (Cardiothoracic Vascular Surgery); ATTEND Thoracic Surgery (Cardiothoracic Vascular Surgery)
PROC: 04CL0ZZ Extirpation of Matter from Left Femoral Artery, Open Approach (ICD-10-PCS; principal; 2021-11-01)
PROC: 04UL0JZ Supplement Left Femoral Artery with Synthetic Substitute, Open Approach (ICD-10-PCS; 2021-11-01)
PROC: 047J3ZZ Dilation of Left External Iliac Artery, Percutaneous Approach (ICD-10-PCS; 2021-11-01)
PROC: 041L09L Bypass Left Femoral Artery to Popliteal Artery with Autologous Venous Tissue, Open Approach (ICD-10-PCS; 2021-11-01)
PROC: 06BQ0ZZ Excision of Left Saphenous Vein, Open Approach (ICD-10-PCS; 2021-11-01)
PROC: B41G1ZZ Fluoroscopy of Left Lower Extremity Arteries using Low Osmolar Contrast (ICD-10-PCS; 2021-11-01)
DX: I70.222 Atherosclerosis of native arteries of extremities with rest pain, left leg (principal); I10 Essential (primary) hypertension; E78.5 Hyperlipidemia, unspecified; J44.9 Chronic obstructive pulmonary disease, unspecified; F17.210 Nicotine dependence, cigarettes, uncomplicated; C32.1 Malignant neoplasm of supraglottis; N40.0 Benign prostatic hyperplasia without lower urinary tract symptoms; Z85.118 Personal history of other malignant neoplasm of bronchus and lung; Z90.2 Acquired absence of lung [part of]; Z85.46 Personal history of malignant neoplasm of prostate; Z79.899 Other long term (current) drug therapy; Z79.02 Long term (current) use of antithrombotics/antiplatelets; Z79.82 Long term (current) use of aspirin; Z83.3 Family history of diabetes mellitus; Z82.49 Family history of ischemic heart disease and other diseases of the circulatory system; Z80.9 Family history of malignant neoplasm, unspecified
CPT/HCPCS: 36415; 76000; 80048; 85025; C1725; C1768; J0360; J0690; J1100; J1642; J1644; J1650; J2250; J2370; J2405; J2704; J2720; J3010; J7050

== ENCOUNTER 2022-05-25 08:43 | Outpatient (CLI) | payer MEDICARE ==
[2022-05-25] MEDS ORDERED: Iopamidol 370 76% 100 ML VIAL ONE (10:36)
== END 2022-05-25 08:44 | disposition home or self-care (01) ==
LOC: CT 08:43
PROVIDERS: ATTEND Thoracic Surgery (Cardiothoracic Vascular Surgery)
DX: I70.223 Atherosclerosis of native arteries of extremities with rest pain, bilateral legs (principal); I70.8 Atherosclerosis of other arteries; J90 Pleural effusion, not elsewhere classified; J92.9 Pleural plaque without asbestos; J43.9 Emphysema, unspecified; Z98.890 Other specified postprocedural states
CPT/HCPCS: 75635; Q9967

== ENCOUNTER 2022-06-05 08:45 | Inpatient (IN) | payer MEDICARE ==
[2022-06-05 11:01] VITALS: BMI 35.2
[2022-06-05 16:11] LABS: Hemoglobin 11.6 g/dL (13.5-17.5); Mean Corpuscular HGB CONC 34.3 g/dL (32.0-36.0); Mean Corpuscular Hemoglobin 31.1 pg (27.0-33.0); Mean Corpuscular Volume 90.6 fl (81.2-95.1); Mean Platelet Volume 9.5 fl (7.4-10.4); Platelet Count 302 10x3/uL (150-450); RBC Distribution Width 13.3 % (11.5-14.5); Red Blood Cell (RBC) Count 3.73 10x6/uL (4.32-5.72); White Blood Cell (WBC) Count 6.1 10x3/uL (3.5-10.5)
[2022-06-05 16:23] LABS: Anion Gap 17 mmol/L (10-20); BUN (Urea Nitrogen) 24 mg/dL (8.4-25.7); Calc. Creatinine Clearance 0 mL/min (70-130); Calcium 9.4 mg/dL (7.8-10.44); Carbon Dioxide 27 mmol/L (23-31); Chloride 94 mmol/L (98-107); Estimated GFR 80; Glucose 84 mg/dL (83-110); Potassium 4.5 mmol/L (3.5-5.1); Sodium 133 mmol/L (136-145)
[2022-06-06] MEDS ORDERED: Midazolam HCl 2 mg/2 ml Vial ONE (06:29)
[2022-06-06] MEDS ORDERED: HYDROmorphone 0.5 MG/0.5 ML SYRINGE ONE (06:30)
[2022-06-06] MEDS ORDERED: fentaNYL Citrate/PF 100 MCG/2 ML SYRINGE ONE (06:30)
[2022-06-06] MEDS ORDERED: SUGAMMADEX SODIUM 200 MG/2 ML VIAL ONE (06:31)
[2022-06-06] MEDS ORDERED: Heparin 5,000 UNITS/ML VIAL ONE (06:41)
[2022-06-06] MEDS ORDERED: Bupivacaine PF 0.5% 30 ML VIAL ONE (06:41)
[2022-06-06] MEDS ORDERED: Protamine Sulfate 50 MG/5 ML VIAL ONE (06:41)
[2022-06-06] MEDS ORDERED: Ondansetron PF 4 MG/2 ML Vial ONE (07:26)
[2022-06-06] MEDS ORDERED: Rocuronium Bromide 10 MG/ML (10ML VIAL) ONE (07:26)
[2022-06-06] MEDS ORDERED: Dexamethasone 20 MG/5 ML VIAL ONE (07:26)
[2022-06-06] MEDS ORDERED: Lidocaine 1% PF 5 ML VIAL ONE (07:26)
[2022-06-06] MEDS ORDERED: Phenylephrine 10 MG/ML VIAL ONE (07:26)
[2022-06-06] MEDS ORDERED: ePHEDrine 50 MG/ML VIAL ONE (07:26)
[2022-06-06] MEDS ORDERED: PROPOFOL 200 MG/20 ML VIAL ONE (07:26)
[2022-06-06] MEDS ORDERED: ceFAZolin 2 GM/Dextrose 50 ML 2 GM in Premix Bag 1 BAG IVPB SCH (10:04)
[2022-06-06] MEDS ORDERED: Polyethylene Glycol 3350 17 GM Packet PO PRN (10:04)
[2022-06-06] MEDS ORDERED: Ondansetron PF 4 MG/2 ML Vial IVP PRN (10:04)
[2022-06-06] MEDS ORDERED: traMADol HCl 50 MG TAB PO PRN ×2 (10:04)
[2022-06-06] MEDS ORDERED: Acetaminophen 325 MG TAB PO PRN (10:04)
[2022-06-06] MEDS ORDERED: Fentanyl 100 MCG/2 ML VIAL ONE (12:25)
[2022-06-06] MEDS ORDERED: CEFAZOLIN 2 GM VIAL ONE (16:46)
[2022-06-06] MEDS ORDERED: Sodium Chloride 0.9% 100 ML ONE (16:46)
[2022-06-06] MEDS: CEFAZOLIN 2 GM in Sodium Chloride 0.9% 100 ML IVPB SCH ×2 (17:00→22:23)
[2022-06-06] MEDS: Sodium Chloride 0.9% 1,000 ML IV SCH ×2 (18:46→22:29)
[2022-06-06] MEDS: Metoprolol Tartrate 25 MG TAB PER TUBE SCH (20:50)
[2022-06-06] MEDS ORDERED: Mirtazapine 15 MG TAB PER TUBE SCH (21:00)
[2022-06-06] MEDS ORDERED: Sodium Chloride 0.65% Nasal 44 ML BOT EA NARE SCH (21:00)
[2022-06-06] MEDS ORDERED: [UNRECOGNIZED DRUG - OTHER] PO SCH (21:00)
[2022-06-06] MEDS ORDERED: Vit A,C & E/Lutein/Minerals Tablet PO SCH (21:00)
[2022-06-06] MEDS: Sodium Chloride 0.65% Nasal 44 ML BOT EA NARE SCH (22:23)
[2022-06-07] MEDS: CEFAZOLIN 2 GM in Sodium Chloride 0.9% 100 ML IVPB SCH (05:43)
[2022-06-07] MEDS ORDERED: Levothyroxine Sodium 50 MCG TAB PER TUBE SCH (06:00)
[2022-06-07 08:29] VITALS: TEMP 97.5
[2022-06-07] MEDS ORDERED: Clopidogrel Bisulfate 75 MG TAB PO SCH (09:00)
[2022-06-07] MEDS ORDERED: Aspirin Chewable 81 MG TAB PO SCH (09:00)
[2022-06-07] MEDS ORDERED: Famotidine 20 MG TAB PO SCH (09:00)
[2022-06-07] MEDS ORDERED: Lisinopril 10 MG TAB PER TUBE SCH (09:00)
[2022-06-07] MEDS ORDERED: Famotidine 40 MG/5 ML Oral Suspension PO SCH (09:00)
[2022-06-07] MEDS ORDERED: Non-Formulary Item 1 EACH (Levothyroxine Sodium [Levothyroxine] 50 MCG Capsule) PER TUBE SCH (09:00)
[2022-06-07] MEDS ORDERED: Ferrous Sulfate 325 MG TAB PO SCH (09:00)
[2022-06-07] MEDS: Metoprolol Tartrate 25 MG TAB PER TUBE SCH (09:08)
[2022-06-07] MEDS: Sodium Chloride 0.65% Nasal 44 ML BOT EA NARE SCH (09:09)
[2022-06-07 09:10] VITALS: BP 173/65
== END 2022-06-07 10:45 | disposition home or self-care (01) | DRG 253 ==
LOC: SURG A 06-06 05:58 → SURG B 06-06 17:37
PROVIDERS: ADMIT Thoracic Surgery (Cardiothoracic Vascular Surgery); ATTEND Thoracic Surgery (Cardiothoracic Vascular Surgery)
PROC: 041K09M Bypass Right Femoral Artery to Peroneal Artery with Autologous Venous Tissue, Open Approach (ICD-10-PCS; principal; 2022-06-06)
PROC: 06BP0ZZ Excision of Right Saphenous Vein, Open Approach (ICD-10-PCS; 2022-06-06)
DX: T82.858A Stenosis of other vascular prosthetic devices, implants and grafts, initial encounter (principal); F05 Delirium due to known physiological condition; Y83.2 Surgical operation with anastomosis, bypass or graft as the cause of abnormal reaction of the patient, or of later complication, without mention of misadventure at the time of the procedure; Z20.822 Contact with and (suspected) exposure to COVID-19; I70.223 Atherosclerosis of native arteries of extremities with rest pain, bilateral legs; E78.00 Pure hypercholesterolemia, unspecified; Z79.82 Long term (current) use of aspirin; Z79.890 Hormone replacement therapy; Z79.899 Other long term (current) drug therapy
CPT/HCPCS: 76000; 80048; 85027; 86850; 86900; 86901; 87811; 93005; 93010; J0690; J1100; J1170; J1644; J2250; J2370; J2405; J2704; J2720; J3010; J3490; J7050; S0020

== ENCOUNTER 2022-06-05 12:57 | Outpatient (CLI) | payer MEDICARE | END 2022-06-05 12:58 | disposition home or self-care (01) | LOC: LABBT 12:57 | PROVIDERS: ATTEND Thoracic Surgery (Cardiothoracic Vascular Surgery) | DX: Z01.810 Encounter for preprocedural cardiovascular examination (principal); I70.223 Atherosclerosis of native arteries of extremities with rest pain, bilateral legs | CPT/HCPCS: 93005; 93010 ==

== ENCOUNTER 2022-08-13 10:35 | Outpatient (CLI) | payer MEDICARE | END 2022-08-13 10:36 | disposition home or self-care (01) | LOC: RAD 10:35 | PROVIDERS: ATTEND Radiology Radiation Oncology | DX: R13.14 Dysphagia, pharyngoesophageal phase (principal); Z85.21 Personal history of malignant neoplasm of larynx; Z92.3 Personal history of irradiation | CPT/HCPCS: 74220; 74230 ==

== ENCOUNTER 2023-01-21 13:19 | Outpatient (CLI) | payer MEDICARE ==
[2023-01-21 15:08] LABS: Hemoglobin 10.6 g/dL (13.5-17.5); Mean Corpuscular HGB CONC 33.4 g/dL (32.0-36.0); Mean Corpuscular Hemoglobin 30.5 pg (27.0-33.0); Mean Corpuscular Volume 91.1 fl (81.2-95.1); Mean Platelet Volume 9.8 fl (7.4-10.4); Platelet Count 259 10x3/uL (150-450); RBC Distribution Width 13.7 % (11.5-14.5); Red Blood Cell (RBC) Count 3.48 10x6/uL (4.32-5.72); White Blood Cell (WBC) Count 4.7 10x3/uL (3.5-10.5)
[2023-01-21 15:20] LABS: Anion Gap 15 mmol/L (10-20); BUN (Urea Nitrogen) 32 mg/dL (8.4-25.7); Calc. Creatinine Clearance 0 mL/min (70-130); Calcium 9.1 mg/dL (7.8-10.44); Carbon Dioxide 27 mmol/L (23-31); Chloride 96 mmol/L (98-107); Estimated GFR 69; Glucose 106 mg/dL (83-110); Potassium 4.8 mmol/L (3.5-5.1); Sodium 133 mmol/L (136-145)
== END 2023-01-21 13:20 | disposition home or self-care (01) ==
LOC: LABBT 13:19
PROVIDERS: ATTEND Thoracic Surgery (Cardiothoracic Vascular Surgery)
DX: Z01.818 Encounter for other preprocedural examination (principal); I73.9 Peripheral vascular disease, unspecified
CPT/HCPCS: 80048; 85027; 93005; 93010

== ENCOUNTER 2023-01-22 05:48 | Day surgery (SDC) | payer MEDICARE ==
[2023-01-18 11:44] VITALS: BMI 20.7
[2023-01-22] MEDS ORDERED: Heparin 5,000 UNITS/ML VIAL ONE (06:15)
[2023-01-22] MEDS ORDERED: Protamine Sulfate 50 MG/5 ML VIAL ONE (06:15)
[2023-01-22] MEDS ORDERED: Bupivacaine HCl 0.5%/Epinephrine 1:200,000/PF 30 ml Vial ONE (06:29)
[2023-01-22] MEDS ORDERED: Fentanyl 250 MCG/5 ML VIAL ONE ×2 (06:32→09:03)
[2023-01-22] MEDS ORDERED: Sodium Chloride 0.9% 100 ML ONE (07:21)
[2023-01-22] MEDS ORDERED: CEFAZOLIN 1 GM VIAL ONE (07:21)
[2023-01-22] MEDS ORDERED: GLYCOPYRROLATE/PF 0.2 MG/ML VIAL ONE (07:24)
[2023-01-22] MEDS ORDERED: ePHEDrine Sulfate 50 MG/10 ML VIAL ONE (07:24)
[2023-01-22] MEDS ORDERED: Lidocaine 1% PF 5 ML VIAL ONE (07:24)
[2023-01-22] MEDS ORDERED: PROPOFOL 200 MG/20 ML VIAL ONE (07:24)
== END 2023-01-22 11:36 | disposition home or self-care (01) ==
LOC: SDC 05:48
PROVIDERS: ATTEND Thoracic Surgery (Cardiothoracic Vascular Surgery)
PROC: 04WY0KZ Revision of Nonautologous Tissue Substitute in Lower Artery, Open Approach (ICD-10-PCS; principal; 2023-01-22)
DX: T82.858A Stenosis of other vascular prosthetic devices, implants and grafts, initial encounter (principal); I70.223 Atherosclerosis of native arteries of extremities with rest pain, bilateral legs; K21.9 Gastro-esophageal reflux disease without esophagitis; E03.9 Hypothyroidism, unspecified; I10 Essential (primary) hypertension; Z85.46 Personal history of malignant neoplasm of prostate; Z87.891 Personal history of nicotine dependence; Z79.82 Long term (current) use of aspirin; Z79.890 Hormone replacement therapy; Z79.899 Other long term (current) drug therapy; Z90.2 Acquired absence of lung [part of]; Z90.49 Acquired absence of other specified parts of digestive tract; Z93.1 Gastrostomy status; Z98.84 Bariatric surgery status; Y71.3 Surgical instruments, materials and cardiovascular devices (including sutures) associated with adverse incidents
CPT/HCPCS: J0690; J1644; J2704; J2720; J3010; J3490

== ENCOUNTER 2023-08-05 10:58 | Outpatient (CLI) | payer MEDICARE ==
[2023-08-05 12:25] LABS: Hemoglobin 8.2 g/dL (13.5-17.5); Mean Corpuscular HGB CONC 32.8 g/dL (32.0-36.0); Mean Corpuscular Hemoglobin 30.4 pg (27.0-33.0); Mean Corpuscular Volume 92.6 fl (81.2-95.1); Mean Platelet Volume 9.4 fl (7.4-10.4); Platelet Count 309 10x3/uL (150-450); RBC Distribution Width 14.1 % (11.5-14.5)
[2023-08-05 13:09] LABS: Anion Gap 12 mmol/L (10-20); BUN (Urea Nitrogen) 37 mg/dL (8.4-25.7); Calc. Creatinine Clearance 0 mL/min (70-130); Calcium 8.9 mg/dL (7.8-10.44); Carbon Dioxide 27 mmol/L (23-31); Chloride 97 mmol/L (98-107); Estimated GFR 69; Glucose 95 mg/dL (83-110); Potassium 4.6 mmol/L (3.5-5.1); Sodium 131 mmol/L (136-145)
== END 2023-08-05 10:59 | disposition home or self-care (01) ==
LOC: LABBT 10:58
PROVIDERS: ATTEND Thoracic Surgery (Cardiothoracic Vascular Surgery)
DX: Z01.818 Encounter for other preprocedural examination (principal)
CPT/HCPCS: 80048; 85027; 93005; 93010

== ENCOUNTER 2023-08-06 05:41 | Day surgery (SDC) | payer MEDICARE ==
[2023-08-05 12:06] VITALS: BMI 18.6
[2023-08-06] MEDS ORDERED: fentaNYL 50 mcg/mL 1 mL Vial ONE (06:27)
[2023-08-06] MEDS ORDERED: Midazolam HCl 2 mg/2 ml Vial ONE (06:27)
[2023-08-06] MEDS ORDERED: Lidocaine 1% (PF) 30 ML VIAL ONE (06:28)
[2023-08-06] MEDS ORDERED: Heparin 10,000 UNITS/ 10 ML VIAL ONE (07:52)
[2023-08-06] MEDS ORDERED: Protamine Sulfate 50 MG/5 ML VIAL ONE (08:18)
[2023-08-06] MEDS ORDERED: Iopamidol 370 76% 100 ML VIAL ONE (09:42)
[2023-08-06] MEDS ORDERED: Acetaminophen 500 MG TAB ONE ×2 (09:45)
== END 2023-08-06 14:50 | disposition home or self-care (01) ==
LOC: SDC 05:41 → EDSTATUS 11:00 → SDC 14:50
PROVIDERS: ATTEND Thoracic Surgery (Cardiothoracic Vascular Surgery)
PROC: 047L3ZZ Dilation of Left Femoral Artery, Percutaneous Approach (ICD-10-PCS; principal; 2023-08-06)
DX: I70.229 Atherosclerosis of native arteries of extremities with rest pain, unspecified extremity (principal); Z87.891 Personal history of nicotine dependence
CPT/HCPCS: 36140; 37226; 75716; 85347 ×2; C1725; C1769 ×2; C1874 ×2; C1887 ×2; C1894; 75710; 75736; J1644; J2001; J2250; J2720; J3010

== ENCOUNTER 2024-02-20 14:07 | Inpatient (IN) | payer MEDICARE ==
[2024-02-20 14:44] LABS: #Basophils Less than 0.03 10x3/uL (0.0-0.2); #Eosinphils Less than 0.03 10x3/uL (0.0-0.7); %Basophils 0.2 % (0.0-1.0); %Monocytes 11.3 % (0.0-10.0); %Neutrophils 84.2 % (42.0-75.0); Hematocrit 21.4 % (42.0-52.0); Hemoglobin 7.9 g/dL (14.0-18.0); Mean Corpuscular HGB CONC 36.9 g/dL (32.0-36.0); Mean Corpuscular Hemoglobin 33.8 pg (27.0-31.0); Mean Corpuscular Volume 91.5 fL (78.0-98.0); Mean Platelet Volume 9.2 fL (7.4-10.4); Platelet Count 227 10x3/uL (130-400); RBC Distribution Width 12.2 % (11.5-14.5); Red Blood Cell (RBC) Count 2.34 mill/uL (4.70-6.10)
[2024-02-20 15:07] LABS: Troponin I 0.036 ng/mL (< 0.028)
[2024-02-20 15:10] LABS: ALT (SGPT) 28 U/L (8-55); AST (SGOT) 48 U/L (5-34); Albumin 3.6 g/dL (3.4-4.8); Alkaline Phosphatase 100 U/L (40-110); Anion Gap 16 mmol/L (10-20); BUN (Urea Nitrogen) 26 mg/dL (8.4-25.7); Bilirubin, Total 0.7 mg/dL (0.2-1.2); Calc. Creatinine Clearance 0 mL/min (70-130); Calcium 8.8 mg/dL (7.8-10.44); Carbon Dioxide 24 mmol/L (23-31); Chloride 83 mmol/L (98-107); Estimated GFR 72; Glucose 90 mg/dL (83-110); Potassium 4.3 mmol/L (3.5-5.1); Protein, Total 6.6 g/dL (5.8-8.1); Sodium 119 mmol/L (136-145)
[2024-02-20] MEDS ORDERED: Glucagon 1 MG/ML KIT IM PRN (16:16)
[2024-02-20] MEDS ORDERED: Dextrose 5% in Water 1,000 ML IV PRN (16:16)
[2024-02-20] MEDS ORDERED: Dextrose 50% Abboject 50 ML SYRINGE SLOW IVP PRN (16:16)
[2024-02-20] MEDS ORDERED: Acetaminophen 325 MG TAB PO PRN (16:16)
[2024-02-20] MEDS ORDERED: Ondansetron PF 4 MG/2 ML Vial IVP PRN (16:16)
[2024-02-20] MEDS ORDERED: Ondansetron ODT 4 MG TAB PO PRN (16:16)
[2024-02-20] MEDS ORDERED: Acetaminophen/Codeine 30-300mg Tablet PO PRN (16:21)
[2024-02-20 16:45] LABS: Bacteria/HPF None Seen HPF (None Seen); Bilirubin Negative (Negative); Blood, Urine 1+ (Negative); CAUTI Indications for Culture Alt mental st,lethar; Clarity Clear (Clear); Glucose, Urine (Dipstick) Normal (Negative); Ketone, Urine Negative (Negative); Leukocyte Negative Leu/uL (Negative); Nitrite Negative (Negative); Protein, Urine (Dipstick) 20 mg/dL (Neg-Trace); Specific Gravity, Urine 1.013 (1.002-1.036); Squamous Epithelial 0-3 HPF (0-3); Urobilinogen Normal mg/dL (Less than 2); WBC/HPF 0-3 HPF (0-3); pH, Urine 6.5 (5.0-9.0)
[2024-02-20 16:49] LABS: Urine Culture Reflex No No
[2024-02-20] MEDS ORDERED: Acetaminophen 650 MG Suppository ONE (17:01)
[2024-02-20 17:42] LABS: INR-International Normal Ratio 1.1; Prothrombin Time 14.6 sec (12.0-14.7)
[2024-02-20 17:43] LABS: PTT 34.9 sec (22.9-36.1)
[2024-02-20 17:48] LABS: Globulin 2.5 g/dL (2.4-3.5)
[2024-02-20 18:12] LABS: ALT (SGPT) 28 U/L (8-55); AST (SGOT) 43 U/L (5-34); Albumin 3.4 g/dL (3.4-4.8); Alkaline Phosphatase 96 U/L (40-110); Anion Gap 15 mmol/L (10-20); BUN (Urea Nitrogen) 26 mg/dL (8.4-25.7); Bilirubin, Total 0.8 mg/dL (0.2-1.2); Calc. Creatinine Clearance 0 mL/min (70-130); Calcium 8.6 mg/dL (7.8-10.44); Carbon Dioxide 24 mmol/L (23-31); Chloride 84 mmol/L (98-107); Estimated GFR 78; Glucose 96 mg/dL (83-110); Potassium 4.1 mmol/L (3.5-5.1); Protein, Total 5.9 g/dL (5.8-8.1); Sodium 119 mmol/L (136-145)
[2024-02-20 19:59] LABS: Sodium 120 mmol/L (136-145)
[2024-02-20 20:48] LABS: Sodium 121 mmol/L (136-145)
[2024-02-20] MEDS: Sodium Chloride 3% 250 ML IVPB SCH (21:28)
[2024-02-20] MEDS: Metoprolol Tartrate 25 MG TAB PER TUBE SCH (21:36)
[2024-02-20 23:44] LABS: Sodium 121 mmol/L (136-145)
[2024-02-21 03:23] LABS: #Basophils Less than 0.03 10x3/uL (0.0-0.2); #Eosinphils Less than 0.03 10x3/uL (0.0-0.7); %Basophils 0.1 % (0.0-1.0); %Monocytes 9.1 % (0.0-10.0); %Neutrophils 88.4 % (42.0-75.0); Hematocrit 17.2 % (42.0-52.0); Hemoglobin 6.4 g/dL (14.0-18.0); Mean Corpuscular HGB CONC 37.2 g/dL (32.0-36.0); Mean Corpuscular Hemoglobin 33.7 pg (27.0-31.0); Mean Corpuscular Volume 90.5 fL (78.0-98.0); Mean Platelet Volume 9.1 fL (7.4-10.4); Platelet Count 222 10x3/uL (130-400); RBC Distribution Width 12.2 % (11.5-14.5)
[2024-02-21 04:08] LABS: Globulin 2.6 g/dL (2.4-3.5)
[2024-02-21 04:12] LABS: ALT (SGPT) 29 U/L (8-55); AST (SGOT) 48 U/L (5-34); Albumin 3.3 g/dL (3.4-4.8); Alkaline Phosphatase 86 U/L (40-110); Anion Gap 13 mmol/L (10-20); BUN (Urea Nitrogen) 22 mg/dL (8.4-25.7); Bilirubin, Total 0.9 mg/dL (0.2-1.2); Calc. Creatinine Clearance 60 mL/min (70-130); Calcium 8.8 mg/dL (7.8-10.44); Carbon Dioxide 25 mmol/L (23-31); Chloride 88 mmol/L (98-107); Estimated GFR 89; Glucose 102 mg/dL (83-110); Potassium 3.8 mmol/L (3.5-5.1); Protein, Total 5.9 g/dL (5.8-8.1); Sodium 122 mmol/L (136-145)
[2024-02-21] MEDS: Levothyroxine Sodium 75 MCG TAB PER TUBE SCH (05:24)
[2024-02-21 07:00] LABS: Sodium 121 mmol/L (136-145)
[2024-02-21] MEDS: hydrALAZINE 20 MG/ML VIAL SLOW IVP PRN (07:54)
[2024-02-21 08:48] LABS: Anion Gap 16 mmol/L (10-20); BUN (Urea Nitrogen) 20 mg/dL (8.4-25.7); Calc. Creatinine Clearance 60 mL/min (70-130); Calcium 8.8 mg/dL (7.8-10.44); Carbon Dioxide 24 mmol/L (23-31); Chloride 88 mmol/L (98-107); Estimated GFR 89; Glucose 100 mg/dL (83-110); Potassium 3.5 mmol/L (3.5-5.1); Sodium 124 mmol/L (136-145)
[2024-02-21] MEDS ORDERED: Non-Formulary Item 1 EACH (Levothyroxine Sodium [Levothyroxine Sodium] 50 MCG Capsule) PER TUBE SCH (09:00)
[2024-02-21] MEDS: Lisinopril 10 MG TAB PER TUBE SCH (10:02)
[2024-02-21] MEDS: Ferrous Sulfate 300 MG (5 mL) UDCUP PER TUBE SCH (10:03)
[2024-02-21] MEDS: Mannitol 12.5 GM/50 ML IV SCH (12:11)
[2024-02-21] MEDS: Sodium Chloride 0.9% 1,000 ML IV SCH (12:25)
[2024-02-21 14:08] LABS: #Basophils Less than 0.03 10x3/uL (0.0-0.2); #Eosinphils Less than 0.03 10x3/uL (0.0-0.7); %Basophils 0.1 % (0.0-1.0); %Lymphocytes 1.5 % (21.0-51.0); %Monocytes 7.8 % (0.0-10.0); %Neutrophils 90.2 % (42.0-75.0); Hematocrit 25.2 % (42.0-52.0); Mean Corpuscular HGB CONC 35.7 g/dL (32.0-36.0); Mean Corpuscular Hemoglobin 32.1 pg (27.0-31.0); Mean Platelet Volume 9.6 fL (7.4-10.4); Platelet Count 207 10x3/uL (130-400); RBC Distribution Width 14.6 % (11.5-14.5)
[2024-02-21 14:38] LABS: Anion Gap 13 mmol/L (10-20); BUN (Urea Nitrogen) 20 mg/dL (8.4-25.7); Calc. Creatinine Clearance 66 mL/min (70-130); Calcium 8.1 mg/dL (7.8-10.44); Carbon Dioxide 23 mmol/L (23-31); Chloride 89 mmol/L (98-107); Estimated GFR 92; Glucose 91 mg/dL (83-110); Potassium 3.5 mmol/L (3.5-5.1); Sodium 121 mmol/L (136-145)
[2024-02-21] MEDS: Morphine 4 MG/ML VIAL SLOW IVP SCH (14:45)
[2024-02-21] MEDS: Sodium Chloride 3% 500 ML IVPB SCH (16:35)
[2024-02-21] MEDS: Lidocaine 1% w/Epinephrine 1:100K 20 ML VIAL FS SCH (16:37)
[2024-02-21] MEDS: Morphine 4 MG/ML VIAL ONE (16:37)
[2024-02-21] MEDS: Lidocaine 1% w/Epinephrine 1:100K 20 ML VIAL ONE (16:37)
[2024-02-21] MEDS: Dextrose 5% in Water 1,000 ML IV SCH (16:37)
[2024-02-21 19:41] LABS: Sodium 125 mmol/L (136-145)
[2024-02-21 20:20] LABS: Sodium 127 mmol/L (136-145)
[2024-02-21] MEDS: Mannitol 12.5 GM/50 ML SLOW IVP SCH (20:20)
[2024-02-21] MEDS: Labetalol HCl 100 MG/20 ML VIAL SLOW IVP PRN (21:27)
[2024-02-21 22:41] LABS: Sodium 128 mmol/L (136-145)
[2024-02-22 08:08] LABS: Anion Gap 16 mmol/L (10-20); BUN (Urea Nitrogen) 22 mg/dL (8.4-25.7); Calc. Creatinine Clearance 62 mL/min (70-130); Carbon Dioxide 21 mmol/L (23-31); Chloride 97 mmol/L (98-107); Estimated GFR 91; Glucose 96 mg/dL (83-110); Potassium 3.8 mmol/L (3.5-5.1); Sodium 130 mmol/L (136-145)
[2024-02-22 08:24] LABS: #Basophils 0.03 10x3/uL (0.0-0.2); #Eosinphils Less than 0.03 10x3/uL (0.0-0.7); %Basophils 0.3 % (0.0-1.0); %Lymphocytes 2.3 % (21.0-51.0); %Monocytes 8.3 % (0.0-10.0); %Neutrophils 88.8 % (42.0-75.0); Hematocrit 26.4 % (42.0-52.0); Hemoglobin 9.2 g/dL (14.0-18.0); Mean Corpuscular HGB CONC 34.8 g/dL (32.0-36.0); Mean Corpuscular Hemoglobin 32.4 pg (27.0-31.0); Mean Platelet Volume 9.3 fL (7.4-10.4); Platelet Count 232 10x3/uL (130-400); RBC Distribution Width 15.1 % (11.5-14.5); Red Blood Cell (RBC) Count 2.84 mill/uL (4.70-6.10)
[2024-02-22] MEDS: CEFAZOLIN 2 GM in Sodium Chloride 0.9% 100 ML IVPB SCH (09:02)
[2024-02-22] MEDS: Metoprolol Tartrate 25 MG TAB PER TUBE SCH ×2 (10:23→20:03)
[2024-02-22 11:46] LABS: Sodium 131 mmol/L (136-145)
[2024-02-22] MEDS ORDERED: CEFAZOLIN 1 GM VIAL SLOW IVP SCH (14:00)
[2024-02-22] MEDS: Acetaminophen/Codeine 30-300mg Tablet PER TUBE PRN (20:04)
[2024-02-22 20:28] LABS: Sodium 133 mmol/L (136-145)
[2024-02-23 05:40] LABS: Anion Gap 12 mmol/L (10-20); BUN (Urea Nitrogen) 23 mg/dL (8.4-25.7); Calc. Creatinine Clearance 63 mL/min (70-130); Calcium 8.7 mg/dL (7.8-10.44); Carbon Dioxide 25 mmol/L (23-31); Chloride 102 mmol/L (98-107); Estimated GFR 90; Glucose 135 mg/dL (83-110); Potassium 3.6 mmol/L (3.5-5.1); Sodium 135 mmol/L (136-145)
[2024-02-23 11:34] LABS: Sodium 136 mmol/L (136-145)
[2024-02-24 05:32] VITALS: BMI 19.1
[2024-02-24 07:13] LABS: Sodium 139 mmol/L (136-145)
[2024-02-24 07:18] LABS: Anion Gap 14 mmol/L (10-20); BUN (Urea Nitrogen) 18 mg/dL (8.4-25.7); Calc. Creatinine Clearance 68 mL/min (70-130); Calcium 8.6 mg/dL (7.8-10.44); Carbon Dioxide 24 mmol/L (23-31); Chloride 105 mmol/L (98-107); Estimated GFR 92; Glucose 89 mg/dL (83-110); Potassium 3.3 mmol/L (3.5-5.1); Sodium 140 mmol/L (136-145)
[2024-02-24] MEDS ORDERED: Electrolyte Replacement Protocol 1 EACH FS SCH (07:30)
[2024-02-24] MEDS: Potassium Bicarbonate/Cit Ac 20 MEQ TAB PER TUBE SCH (09:08)
[2024-02-24 11:58] LABS: Sodium 141 mmol/L (136-145)
[2024-02-24 19:47] LABS: Sodium 139 mmol/L (136-145)
[2024-02-25 08:47] LABS: Anion Gap 14 mmol/L (10-20); BUN (Urea Nitrogen) 17 mg/dL (8.4-25.7); Calc. Creatinine Clearance 72 mL/min (70-130); Calcium 8.5 mg/dL (7.8-10.44); Carbon Dioxide 24 mmol/L (23-31); Chloride 105 mmol/L (98-107); Estimated GFR 94; Glucose 102 mg/dL (83-110); Potassium 3.7 mmol/L (3.5-5.1); Sodium 139 mmol/L (136-145)
[2024-02-25 09:43] LABS: #Basophils 0.03 10x3/uL (0.0-0.2); #Eosinphils Less than 0.03 10x3/uL (0.0-0.7); %Basophils 0.4 % (0.0-1.0); %Eosinophils 0.3 % (0.0-10.0); %Lymphocytes 4.4 % (21.0-51.0); %Monocytes 9.8 % (0.0-10.0); %Neutrophils 84.7 % (42.0-75.0); Hematocrit 27.6 % (42.0-52.0); Mean Corpuscular HGB CONC 32.6 g/dL (32.0-36.0); Mean Corpuscular Hemoglobin 31.3 pg (27.0-31.0); Mean Corpuscular Volume 95.8 fL (78.0-98.0); Mean Platelet Volume 9.1 fL (7.4-10.4); Platelet Count 266 10x3/uL (130-400); RBC Distribution Width 15.3 % (11.5-14.5); Red Blood Cell (RBC) Count 2.88 mill/uL (4.70-6.10)
[2024-02-25] MEDS: Scopolamine 1 mg/72 hour Patch TD SCH (10:06)
[2024-02-25] MEDS: Lisinopril 20 MG TAB PER TUBE SCH (10:06)
[2024-02-25] MEDS: Metoprolol Tartrate 50 MG TAB PER TUBE SCH (10:06)
[2024-02-26 07:33] LABS: Anion Gap 12 mmol/L (10-20); BUN (Urea Nitrogen) 18 mg/dL (8.4-25.7); Calc. Creatinine Clearance 87 mL/min (70-130); Calcium 8.6 mg/dL (7.8-10.44); Carbon Dioxide 25 mmol/L (23-31); Chloride 103 mmol/L (98-107); Estimated GFR 95; Glucose 111 mg/dL (83-110); Potassium 3.4 mmol/L (3.5-5.1); Sodium 137 mmol/L (136-145)
[2024-02-26 08:33] LABS: #Basophils Less than 0.03 10x3/uL (0.0-0.2); %Basophils 0.2 % (0.0-1.0); %Eosinophils 0.7 % (0.0-10.0); %Lymphocytes 3.6 % (21.0-51.0); %Monocytes 9.6 % (0.0-10.0); %Neutrophils 85.3 % (42.0-75.0); Hematocrit 26.9 % (42.0-52.0); Hemoglobin 8.9 g/dL (14.0-18.0); Mean Corpuscular HGB CONC 33.1 g/dL (32.0-36.0); Mean Corpuscular Hemoglobin 32.2 pg (27.0-31.0); Mean Corpuscular Volume 97.5 fL (78.0-98.0); Mean Platelet Volume 8.7 fL (7.4-10.4); Platelet Count 253 10x3/uL (130-400); RBC Distribution Width 15.1 % (11.5-14.5); Red Blood Cell (RBC) Count 2.76 mill/uL (4.70-6.10)
[2024-02-26] MEDS: Potassium Bicarbonate/Cit Ac 20 MEQ TAB PER TUBE SCH (10:16)
[2024-02-26 11:20] LABS: Sodium 139 mmol/L (136-145)
[2024-02-27 06:21] LABS: Anion Gap 15 mmol/L (10-20); BUN (Urea Nitrogen) 27 mg/dL (8.4-25.7); Calc. Creatinine Clearance 83 mL/min (70-130); Calcium 8.8 mg/dL (7.8-10.44); Carbon Dioxide 23 mmol/L (23-31); Chloride 104 mmol/L (98-107); Estimated GFR 94; Glucose 102 mg/dL (83-110); Potassium 4.3 mmol/L (3.5-5.1); Sodium 138 mmol/L (136-145)
[2024-02-27 11:17] LABS: Sodium 141 mmol/L (136-145)
[2024-02-27] MEDS: Amantadine HCl 10 mg/ml Oral Solution PO SCH (20:27)
[2024-02-27] MEDS: Metoprolol Tartrate 50 MG TAB PER TUBE SCH (20:27)
[2024-02-28 06:06] LABS: Anion Gap 15 mmol/L (10-20); BUN (Urea Nitrogen) 27 mg/dL (8.4-25.7); Calc. Creatinine Clearance 74 mL/min (70-130); Carbon Dioxide 26 mmol/L (23-31); Chloride 103 mmol/L (98-107); Estimated GFR 92; Glucose 117 mg/dL (83-110); Potassium 4.4 mmol/L (3.5-5.1); Sodium 140 mmol/L (136-145)
[2024-02-28] MEDS: Transdermal Patch Removal TOP SCH (09:26)
[2024-02-28] MEDS: Mannitol 12.5 GM/50 ML SLOW IVP SCH (10:03)
[2024-02-28 12:05] LABS: Sodium 139 mmol/L (136-145)
[2024-02-28] MEDS: Sodium Chloride 0.9% 1,000 ML IV SCH (13:24)
[2024-02-28 16:17] LABS: Sodium 138 mmol/L (136-145)
[2024-02-28] MEDS: Acetaminophen 325 MG TAB PER TUBE PRN (20:15)
[2024-02-29 00:36] LABS: Sodium 141 mmol/L (136-145)
[2024-02-29] MEDS: Labetalol HCl 100 MG/20 ML VIAL SLOW IVP PRN (03:06)
[2024-02-29 05:28] LABS: Anion Gap 11 mmol/L (10-20); BUN (Urea Nitrogen) 27 mg/dL (8.4-25.7); Calc. Creatinine Clearance 75 mL/min (70-130); Calcium 8.5 mg/dL (7.8-10.44); Carbon Dioxide 28 mmol/L (23-31); Chloride 105 mmol/L (98-107); Estimated GFR 92; Glucose 141 mg/dL (83-110); Potassium 4.1 mmol/L (3.5-5.1); Sodium 140 mmol/L (136-145)
[2024-02-29 10:06] LABS: Sodium 140 mmol/L (136-145)
[2024-02-29 16:34] LABS: Sodium 141 mmol/L (136-145)
[2024-03-01 00:11] LABS: Sodium 142 mmol/L (136-145)
[2024-03-01 05:31] LABS: #Basophils Less than 0.03 10x3/uL (0.0-0.2); %Basophils 0.2 % (0.0-1.0); %Eosinophils 1.3 % (0.0-10.0); %Lymphocytes 4.2 % (21.0-51.0); %Monocytes 8.3 % (0.0-10.0); %Neutrophils 85.7 % (42.0-75.0); Hematocrit 26.1 % (42.0-52.0); Hemoglobin 8.3 g/dL (14.0-18.0); Mean Corpuscular HGB CONC 31.8 g/dL (32.0-36.0); Mean Corpuscular Hemoglobin 31.9 pg (27.0-31.0); Mean Corpuscular Volume 100.4 fL (78.0-98.0); Platelet Count 325 10x3/uL (130-400); RBC Distribution Width 15.5 % (11.5-14.5)
[2024-03-01 06:04] LABS: Anion Gap 12 mmol/L (10-20); BUN (Urea Nitrogen) 28 mg/dL (8.4-25.7); Calc. Creatinine Clearance 74 mL/min (70-130); Calcium 8.4 mg/dL (7.8-10.44); Carbon Dioxide 27 mmol/L (23-31); Chloride 107 mmol/L (98-107); Estimated GFR 91; Glucose 142 mg/dL (83-110); Sodium 142 mmol/L (136-145)
[2024-03-01] MEDS: Mannitol 12.5 GM/50 ML SLOW IVP SCH (09:12)
[2024-03-01 09:43] LABS: Sodium 142 mmol/L (136-145)
[2024-03-01 17:34] LABS: Sodium 142 mmol/L (136-145)
[2024-03-02 00:45] LABS: Sodium 142 mmol/L (136-145)
[2024-03-02] MEDS: hydrALAZINE 20 MG/ML VIAL SLOW IVP PRN (03:07)
[2024-03-02 08:39] VITALS: BP 140/62
[2024-03-02 09:10] LABS: Sodium 142 mmol/L (136-145)
[2024-03-02 13:14] VITALS: BMI 21.2
[2024-03-02 17:13] LABS: Sodium 142 mmol/L (136-145)
[2024-03-03 04:22] LABS: Sodium 144 mmol/L (136-145)
[2024-03-03 07:45] VITALS: TEMP 97.4
[2024-03-03] MEDS ORDERED: Electrolyte Replacement Protocol FS PRN (08:45)
== END 2024-03-03 15:48 | disposition hospice, home (50) | DRG 82 ==
LOC: ERS 14:07 → CCU 16:16 → 2SE 02-23 16:03 → SURG A 02-25 15:20 → IMCU/EMU 02-28 09:14
PROVIDERS: ADMIT Student in an Organized Health Care Education/Training Program; ATTEND Surgery
PROC: 6A550Z2 Pheresis of Platelets, Single (ICD-10-PCS; 2024-02-20)
PROC: 30233N1 Transfusion of Nonautologous Red Blood Cells into Peripheral Vein, Percutaneous Approach (ICD-10-PCS; principal; 2024-02-21)
DX: S06.5XAA Traumatic subdural hemorrhage with loss of consciousness status unknown, initial encounter (principal); G93.41 Metabolic encephalopathy; S06.A1XA Traumatic brain compression with herniation, initial encounter; E87.1 Hypo-osmolality and hyponatremia; N30.41 Irradiation cystitis with hematuria; I10 Essential (primary) hypertension; Z66 Do not resuscitate; Z51.5 Encounter for palliative care; E78.5 Hyperlipidemia, unspecified; E03.9 Hypothyroidism, unspecified; I25.10 Atherosclerotic heart disease of native coronary artery without angina pectoris; E78.00 Pure hypercholesterolemia, unspecified; F32.A Depression, unspecified; Z90.2 Acquired absence of lung [part of]; Z90.79 Acquired absence of other genital organ(s); Z98.890 Other specified postprocedural states; Z87.891 Personal history of nicotine dependence; E87.6 Hypokalemia; R13.10 Dysphagia, unspecified; Z85.46 Personal history of malignant neoplasm of prostate; Z85.118 Personal history of other malignant neoplasm of bronchus and lung; R79.89 Other specified abnormal findings of blood chemistry; D50.9 Iron deficiency anemia, unspecified
CPT/HCPCS: 36415; 36416; 36430; 36556; 51701; 70450; 71045; 72125; 80048; 80053; 81001; 82140; 82274; 83605; 83735; 83880; 83930; 83935; 84295; 84439; 84443; 84484; 85025; 85610; 85730; 86850; 86900; 86901; 87040; 87086; 93005; 93970; 96360; 96361; G0390; J0360; J2150; J2270; J3490; J7050; J7131; P9016; P9035